=== PATIENT | male | born 1970 | race Caucasian/White ===

== ENCOUNTER 2024-11-25 20:54 | Emergency (ER) | payer BC ==
[2024-11-25] MEDS ORDERED: Lidocaine 2% with EPINEPHrine 1:100,000 20 ML MDV INFILT ONE (20:55)
== END 2024-11-25 21:47 | disposition home or self-care (01) ==
LOC: FB.ED 20:54
DX: S61.210A Laceration without foreign body of right index finger without damage to nail, initial encounter (principal); W26.8XXA Contact with other sharp object(s), not elsewhere classified, initial encounter; Y93.89 Activity, other specified
CPT/HCPCS: 12001; 99282; 99283